=== PATIENT | male | born 1940 | race Caucasian/White ===

== ENCOUNTER → 2016-08-24 | Outpatient (REF) | LOC: ZLAB.WCH 13:31 | DX: Z01.89 Encounter for other specified special examinations (principal) ==

== ENCOUNTER → 2016-09-28 | Outpatient (REF) | LOC: ZLAB.WCH 15:59 | DX: Z01.89 Encounter for other specified special examinations (principal) ==

== ENCOUNTER → 2016-11-13 | Outpatient (REF) | LOC: ZLAB.WCH 15:25 | DX: Z01.89 Encounter for other specified special examinations (principal) | CPT/HCPCS: G0103 ==

== ENCOUNTER → 2017-05-09 | Outpatient (REF) ==
[2017-05-09 19:17] LABS: PSA-TOTAL 6.78 ng/mL (0-4); THYROID STIMULATING HORMONE 2.06 uIU/mL (0.465-4.680)
== END ==
LOC: ZLAB.WCH 18:32
PROVIDERS: Urology
DX: Z01.89 Encounter for other specified special examinations (principal)
CPT/HCPCS: G0103

== ENCOUNTER → 2017-11-11 | Outpatient (REF) | LOC: ZLAB.WCH 16:01 | DX: Z01.89 Encounter for other specified special examinations (principal) | CPT/HCPCS: G0103 ==

== ENCOUNTER → 2018-07-11 | Outpatient (REF) | LOC: ZLAB.WCH 19:38 | DX: Z01.89 Encounter for other specified special examinations (principal) | CPT/HCPCS: G0103 ==

== ENCOUNTER 2021-05-31 08:15 | Day surgery (SDC) | payer MEDICARE ==
[~2021-05-31] VITALS: Ht 160 cm; Wt 54.1 kg
[2021-05-31 09:14] VITALS: BP 117/76; PULSE 56; TEMP 97.5
[2021-05-31] MEDS ORDERED: FLONASEALLERGY NS (09:28)
[2021-05-31] MEDS ORDERED: COREG 3.123.125 MG/T PO (09:29)
[2021-05-31] MEDS ORDERED: LIPITOR 80MG80 MG PO (09:30)
[2021-05-31] MEDS ORDERED: ARICEPT23 MG PO (09:30)
[2021-05-31] MEDS ORDERED: XALATAN EYE DROPS OU (09:31)
[2021-05-31] MEDS ORDERED: NAMENDA 10MG TA10 MG PO (09:31)
[2021-05-31 10:13] VITALS: BP 110/68; PULSE 82
--- NOTE | 2021-05-31 10:13 | NUR ---
Patient returns to room 4 per cart from surgery accompanied by Charlie CAREY and Evelyn RN. TEmp 97 and room air sats 100%. IV fluids infusing and site is free of redness or swelling. Siderails up x2 and call light in reach. Family in room. Drowsy and arouses to verbal stimuli. Allowed to rest.
[2021-05-31] MEDS ORDERED: NORCO 325 MG-51 TAB PO (10:25)
[2021-05-31 10:28] VITALS: BP 118/65; PULSE 52
--- NOTE | 2021-05-31 10:28 | NUR ---
More awake now. Talking with spouse. Drinking water and juice.
--- NOTE | 2021-05-31 10:35 | NUR ---
Awake and assisted up to the bathroom. Gait is steady. IV to INT. Voids and returns to room.
[2021-05-31 10:43] VITALS: BP 153/74; PULSE 63
--- NOTE | 2021-05-31 10:43 | NUR ---
Eating muffin and denies pain or nausea. Takes sips of apple juice.
--- NOTE | 2021-05-31 10:55 | NUR ---
Again up to the bathroom. Gait steady and voids and returns to room.
--- NOTE | 2021-05-31 11:00 | NUR ---
Patient pulled INT out. Site is bruised. Site covered with cotton ball and coban.
--- NOTE | 2021-05-31 11:25 | NUR ---
Assisted patient with dressing. Spouse in room. Dismissal instructions given to spouse. Instructed to picker operator pain medication at the pharmacy. All questions answered. Dismissal instructions signed.
--- NOTE | 2021-05-31 11:33 | NUR ---
Patient dismissed to home driven by spouse and taken to the front door per wheelchair and assisted into vehicle with instructions in hand.
== END 2021-05-31 11:33 | disposition home or self-care (01) ==
LOC: SDCO 08:15
DX: N20.2 Calculus of kidney with calculus of ureter (principal); C61 Malignant neoplasm of prostate; R31.21 Asymptomatic microscopic hematuria; N20.0 Calculus of kidney; N39.0 Urinary tract infection, site not specified; E78.5 Hyperlipidemia, unspecified; I25.2 Old myocardial infarction; I25.10 Atherosclerotic heart disease of native coronary artery without angina pectoris; M19.90 Unspecified osteoarthritis, unspecified site; G30.9 Alzheimer's disease, unspecified; E78.00 Pure hypercholesterolemia, unspecified; F02.80 Dementia in other diseases classified elsewhere, unspecified severity, without behavioral disturbance, psychotic disturbance, mood disturbance, and anxiety; Z90.89 Acquired absence of other organs; Z95.1 Presence of aortocoronary bypass graft; Z79.899 Other long term (current) drug therapy; Z98.52 Vasectomy status
CPT/HCPCS: J0690; J1940; J2704; J3010; J7120